=== PATIENT | male | born 2000 | race Caucasian/White ===

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

== ENCOUNTER 2021-06-23 03:10 | Emergency (ER) | payer OTHER ==
[2021-06-23] MEDS ORDERED: Ondansetron 4 MG/2 ML SDV IV ONE (03:27)
[2021-06-23] MEDS ORDERED: fentaNYL 100 MCG/2 ML SDV IVPUSH ONE (03:27)
[2021-06-23] MEDS ORDERED: Lactated Ringers 1,000 ML IV ONE (03:27)
[2021-06-23] MEDS ORDERED: Sodium Chloride 0.9% 10 ML Syringe FLUSH PRN (03:27)
[2021-06-23] MEDS ORDERED: Etomidate 2 MG/ML 10 ML SDV IVPUSH ONE (04:20)
[2021-06-23] MEDS ORDERED: fentaNYL 50 MCG/ML SDV IVPUSH ONE (04:20)
[2021-06-23] MEDS ORDERED: Ketorolac 30 MG/ML SDV IVPUSH ONE (04:52)
== END 2021-06-23 05:32 | disposition home or self-care (01) ==
LOC: VM.ED 03:10
DX: S43.005A Unspecified dislocation of left shoulder joint, initial encounter (principal); W22.8XXA Striking against or struck by other objects, initial encounter
CPT/HCPCS: 23650; 73020-LT; 73030-LT; 96374; 96375; 96376; 99283-25; J1885; J2405; J3010; J3490; J7120

== ENCOUNTER 2021-06-23 06:31 | Emergency (ER) | payer OTHER ==
[2021-06-23] MEDS ORDERED: Ketamine 200 MG/20 ML MDV IVPUSH ONE (06:43)
[2021-06-23] MEDS ORDERED: Sodium Chloride 0.9% 10 ML Syringe FLUSH PRN (06:43)
[2021-06-23] MEDS ORDERED: Midazolam 1 MG/ML 2 ML SDV IVPUSH STA (06:45)
[2021-06-23] MEDS ORDERED: fentaNYL 50 MCG/ML SDV IVPUSH ONE (07:39)
[2021-06-23] MEDS ORDERED: Etomidate 2 MG/ML 10 ML SDV IVPUSH ONE (07:39)
== END 2021-06-23 08:40 | disposition home or self-care (01) ==
LOC: VM.ED 06:31
DX: S43.005A Unspecified dislocation of left shoulder joint, initial encounter (principal); Z88.1 Allergy status to other antibiotic agents; W22.8XXA Striking against or struck by other objects, initial encounter
CPT/HCPCS: 23650; 73020-LT; 73030-LT; 96374; 99283-25; J2250; J3010; J3490